=== PATIENT | female | born 1995 | race African-American/Black ===

== ENCOUNTER 2016-09-22 15:13 | Emergency (ER) | payer OTHER ==
[2016-09-22 15:46] LABS: BILIRUBIN,URINE NEGATIVE (NEGATIVE)
[2016-09-22 15:53] LABS: UA w/ MICROSCOPIC CHARGE YES
[2016-09-22 15:54] LABS: HCG UR QUAL NEGATIVE
[2016-09-22 16:23] LABS: UR CULTURE IF IND NOT INDICATED; WBC,URINE 0-3 /HPF (0-5)
[2016-09-22] MEDS ORDERED: AZITHROMYCIN 250 MG TABLET PO STA (18:49)
--- NOTE | 2016-09-22 18:50 | ED Physician Documentation ---
PD HPI FEMALE - Stated complaint Stated Complaint: FEMALE - Chief complaint Chief Complaint: Abd Pain - History obtained from History obtained from: Patient - History of Present Illness Timing - onset: Other (She was treated for chlamydia a month ago. But that her boyfriend was treated at a different time and she has recurrent symptoms with discharge but no pelvic pain or fevers.) Review of Systems Constitutional: denies: Fever, Chills Respiratory: denies: Dyspnea, Cough GI: denies: Abdominal Pain, Nausea, Vomiting PD PAST MEDICAL HISTORY - Past Medical History Past Medical History: Yes Cardiovascular: None Respiratory: None Neuro: None Endocrine/Autoimmune: None GI: None ORTHO ASSISTANT: None : None HEENT: None Psych: None Musculoskeletal: None Derm: None - Past Surgical History Past Surgical History: Yes /ORTHO ASSISTANT: Breast reduction - Present Medications Home Medications: Ambulatory Orders Medication Instructions Recorded Confirmed Amitriptyline [Elavil] 10 mg PO QPM #10 tablet 11/13/14 - Allergies Allergies/Adverse Reactions: Allergies Allergy/AdvReac Type Severity Reaction Status Date / Time No Known Drug Allergies Allergy Verified 11/13/14 11:55 - Social History Does the pt smoke?: No Smoking Status: Never smoker Does the pt drink ETOH?: No Does the pt have substance abuse?: No - Immunizations Immunizations are current?: Yes - POLST Patient has POLST: No PD ED PE NORMAL - Vitals Vital signs reviewed: Yes - General General: Alert and oriented X 3, No acute distress - Abdomen Abdomen: Soft, Non tender - Neuro Neuro: Alert and oriented X 3, Normal speech - Psych Psych: Normal mood, Normal affect Results - Vitals Vitals: Vital Signs - 24 hr 09/22/16 15:20 Temperature 36.5 C Heart Rate 82 Respiratory 18 Rate Blood Pressure 93/57 L O2 Saturation 98 Oxygen O2 Source Room air - Labs Labs: Laboratory Tests 09/22/16 15:25 Urine Color YELLOW Urine Clarity CLOUDY Urine pH 6.0 Ur Specific [place] >=1.030 H Urine Protein NEGATIVE Urine Glucose (UA) NEGATIVE Urine Ketones NEGATIVE Urine Occult Blood SMALL H Urine Nitrite NEGATIVE Urine Bilirubin NEGATIVE Urine Urobilinogen 0.2 (NORMAL) Ur Leukocyte Esterase NEGATIVE Urine RBC 0-5 Urine WBC 0-3 Ur Squamous Epith Cells FEW Squamous Urine Bacteria None Seen Ur Microscopic Review INDICATED Urine Culture Comments NOT INDICATED Urine HCG, Qual NEGATIVE Departure - Departure Disposition: 01 Home, Self Care Clinical Impression: Exposure to STD Condition: Good Record reviewed to determine appropriate education?: Yes Comments: We will call if your Chlamydia test is positive but she will be treated at that point.
[2016-09-22] MEDS ORDERED: AZITHROMYCIN 250 MG TABLET PO ONE (19:04)
[2016-09-22 19:09] VITALS: BP 110/62
== END 2016-09-22 19:09 | disposition home or self-care (01) ==
LOC: ED 15:13
DX: Z20.2 Contact with and (suspected) exposure to infections with a predominantly sexual mode of transmission (principal)
CPT/HCPCS: 81001; 81025; 87491; 87591; 99283; A9270; 81003; 87086

== ENCOUNTER 2017-01-31 12:52 | Emergency (ER) | payer OTHER ==
[2017-01-31 13:05] VITALS: BP 116/80
[2017-01-31 14:15] LABS: BILIRUBIN,URINE NEGATIVE (NEGATIVE); PH,URINE 6.5 PH (5.0-7.5)
[2017-01-31 14:17] LABS: HCG UR QUAL NEGATIVE; UA CHARGE (STRIP ONLY) YES; UR CULTURE IF IND NOT INDICATED
[2017-01-31] MEDS ORDERED: cefTRIAXone 250 MG VIAL IM STA (15:07)
[2017-01-31] MEDS ORDERED: AZITHROMYCIN 250 MG TABLET PO STA (15:07)
[2017-01-31] MEDS ORDERED: FLUCONAZOLE 100 MG TABLET PO STA (15:08)
--- NOTE | 2017-01-31 15:10 | ED Physician Documentation ---
PD HPI FEMALE - Stated complaint Stated Complaint: FEMALE - Chief complaint Chief Complaint: General - History obtained from History obtained from: Patient - History of Present Illness Timing - onset: How many weeks ago (1) Timing - duration: Weeks (1) Timing - details: Gradual onset, Still present Associated symptoms: Vaginal discharge, Dysuria Contributing factors: Sexually active, Exposed to STD Similar symptoms before: Diagnosis (chlamydia) Recently seen: Not recently seen - Additional information Additional information: 21-year-old female with a history of vaginal discharge and urinary urgency believes she has symptoms similar to what she has had previously with chlamydia. She has been with one partner for the past 7 months and she is suspicious. She has some pelvic pain but not a lot. She has not had fever. She does have some vaginal itching as well. She is also concerned about hemorrhoids. She has been having some blood periodically on the outside of her stool some pain and feels a lump. Review of Systems Constitutional: denies: Fever Eyes: denies: Decreased vision Ears: denies: Ear pain Nose: denies: Congestion Throat: denies: Sore throat Cardiac: denies: Chest pain / pressure Respiratory: denies: Dyspnea, Cough GI: denies: Abdominal Pain, Nausea, Vomiting : reports: Dysuria, Discharge. denies: Hematuria Skin: denies: Rash Musculoskeletal: denies: Neck pain, Back pain, Extremity pain PD PAST MEDICAL HISTORY - Past Medical History Cardiovascular: None Respiratory: None Neuro: None Endocrine/Autoimmune: None GI: None [employer] TECHNICAL MANAGER: None : None HEENT: None Psych: None Musculoskeletal: None Derm: None - Past Surgical History Past Surgical History: Yes /[employer] TECHNICAL MANAGER: Breast reduction - Present Medications Home Medications: Ambulatory Orders Medication Instructions Recorded Confirmed Supplement For Weight Gain 1 tab ORAL DAILY 01/31/17 01/31/17 - Allergies Allergies/Adverse Reactions: Allergies Allergy/AdvReac Type Severity Reaction Status Date / Time No Known Drug Allergies Allergy Verified 01/31/17 13:05 - Social History Does the pt smoke?: No Smoking Status: Never smoker Does the pt drink ETOH?: No Does the pt have substance abuse?: No - Immunizations Immunizations are current?: Yes - POLST Patient has POLST: No PD ED PE NORMAL - Vitals Vital signs reviewed: Yes (Normal) - General General: Alert and oriented X 3, No acute distress, Well developed/nourished - HEENT HEENT: Atraumatic - Respiratory Respiratory: No respiratory distress - Female Female : Crane Assembler present (Chloe), Other (White discharge and friable cervix. mild cervical motion tenderness. ) - Rectal Rectal: Other (There are palpable internal hemorrhoids without acute bleeding. There is not appear to be any thrombosis.) - Back Back: No CVA TTP, No spinal TTP - Derm Derm: Normal color, Warm and dry, No rash - Extremities Extremities: No deformity, No edema - Neuro Neuro: No motor deficit, No sensory deficit Eye Opening: Spontaneous Motor: Obeys Commands Verbal: Oriented GCS Score: 15 - Psych Psych: Normal mood, Normal affect Results - Vitals Vitals: Vital Signs - 24 hr 01/31/17 13:02 Temperature 36.3 C L Heart Rate 71 Respiratory 16 Rate Blood Pressure 116/80 O2 Saturation 100 Oxygen O2 Source Room air - Labs Labs: Laboratory Tests 01/31/17 14:05 Urine Color YELLOW Urine Clarity CLEAR Urine pH 6.5 Ur Specific [place] 1.025 Urine Protein NEGATIVE Urine Glucose (UA) NEGATIVE Urine Ketones NEGATIVE Urine Occult Blood NEGATIVE Urine Nitrite NEGATIVE Urine Bilirubin NEGATIVE Urine Urobilinogen 0.2 (NORMAL) Ur Leukocyte Esterase NEGATIVE Ur Microscopic Review NOT INDICATED Urine Culture Comments NOT INDICATED Urine HCG, Qual NEGATIVE PD MEDICAL DECISION MAKING - ED course Complexity details: considered differential, d/w patient ED course: 21-year-old female with a vaginal discharge and suspicion of STD has minimal cervical motion tenderness on examination she does have a discharge and cervical friability and she is treated with Rocephin 250 mg IM and azithromycin 1 g orally. In addition she is having symptoms of vaginal itching and she is given Diflucan 150 mg orally. Departure - Departure Disposition: 01 Home, Self Care Clinical Impression: Exposure to STD Hemorrhoids Qualifiers: Hemorrhoid type: first degree Qualified Code(s): K64.0 - First degree hemorrhoids Condition: Stable Instructions: ED VD Cervicitis Treated, ED Hemorrhoids Follow-Up: Amy Foley ARNP [Primary Care Provider] -
[2017-01-31] MEDS ORDERED: FLUCONAZOLE 100 MG TABLET ONE (15:18)
[2017-01-31] MEDS ORDERED: cefTRIAXone 250 MG VIAL ONE (15:19)
[2017-01-31] MEDS ORDERED: LIDOCAINE 1% 2 ML VIAL ONE (15:20)
[2017-01-31] MEDS ORDERED: AZITHROMYCIN 250 MG TABLET PO ONE ×2 (15:20→15:29)
== END 2017-01-31 15:34 | disposition home or self-care (01) ==
LOC: ED 12:52
DX: Z20.2 Contact with and (suspected) exposure to infections with a predominantly sexual mode of transmission (principal); K64.0 First degree hemorrhoids
CPT/HCPCS: 81003; 81025; 87491; 87591; 96372; 99283; A9270; 81001; 87086